=== PATIENT | female | born 1935 | race Caucasian/White ===

== ENCOUNTER 2022-06-24 13:16 | Emergency (ER) | payer OTHER ==
[~2022-06-24 13:16] MED LIST: GLUCOPHAGE500 MG PO; IBUPROFEN800 MG PO; LIPITOR10 MG PO; NORVASC2.5 MG PO; TRAZODONE HCL100 MG PO
[2022-06-24 15:34] LABS: BASOPHIL 0.4 % (0-2); EOSINOPHIL 0.7 % (0-7); HGB 13.3 g/dl (12.5-16.0); LYMPHOCYTE 20.6 % (15-48); MCH 30.2 pg (25.0-31.0); MCHC 33.3 g/dL (32.0-36.0); MCV 90.7 fL (78.0-100.0); MONOCYTE 10.5 % (0-12); MPV 10.7 fL (6.0-9.5); NEUTROPHIL 67.1 % (41-80); NRBC 0; PLT 269 K/uL (150-400); RBC 4.41 M/uL (4.20-5.40); RDW 13.1 % (11.5-14.0); WBC 7.5 K/uL (4.0-10.5)
[2022-06-24 15:39] LABS: INR 0.98 (0.9-1.2); PROTHROMBIN TIME 12.7 SECONDS (11.9-13.9); PTT 27.5 SECONDS (24.9-34.6)
[2022-06-24 15:40] LABS: D-DIMER 1.44 ug/mLFEU (0.00-0.41)
[2022-06-24 15:41] LABS: ALBUMIN 3.4 g/dL (3.4-5.0); BILIRUBIN - TOTAL 0.7 mg/dL (0.2-1.0); BUN/CREAT RATIO (CALC) 19.3 RATIO; CREATININE 0.88 mg/dL (0.51-0.95); GLOBULIN (CALCULATION) 3.2 g/dL; POTASSIUM 3.6 mmol/L (3.5-5.1); TOTAL PROTEIN 6.6 g/dL (6.4-8.2)
[2022-06-24 16:03] LABS: INFLUENZA A NAA NEGATIVE (NEGATIVE)
[2022-06-24 16:08] LABS: CORONAVIRUS 2019 SARS-COV-2 POSITIVE (NEGATIVE)
[2022-06-24] MEDS ORDERED: VENTOLIN HFA IN18 GM INH ×2 (17:46→18:27)
[2022-06-24] MEDS ORDERED: PAXLOVID 300-11 EACH PO ×2 (17:46→18:27)
== END 2022-06-24 18:30 | disposition home or self-care (01) ==
LOC: FER 13:16
PROVIDERS: Emergency Medicine
DX: U07.1 COVID-19 (principal); I10 Essential (primary) hypertension; E11.9 Type 2 diabetes mellitus without complications; Z86.16 Personal history of COVID-19; Z88.6 Allergy status to analgesic agent; Z28.311 Partially vaccinated for COVID-19
CPT/HCPCS: 36415; 36600; 71045; 71275; 80053; 82803; 83880; 84145; 84484; 85025; 85379; 85610; 85730; 87040; 93005; 94640; Q9967; U0002